=== PATIENT | female | born 1985 | race Caucasian/White ===

== ENCOUNTER 2016-10-27 22:57 | Emergency (ER) | payer BC ==
--- NOTE | 2016-10-27 23:52 | EDM.PDOC ---
ED HPI HEAD INJURY - General Chief Complaint: Head Injury Stated Complaint: FELL ON ICE AND HIT HEAD Time Seen by Provider: 10/27/16 23:34 Source of Information: Reports: Patient, Family (mother) History Limitations: Reports: No limitations - History of Present Illness INITIAL COMMENTS - FREE TEXT/NARRATIVE: Patient presents with headache and pressure across the left side of her head after falling on the ice at about 0900 this morning at work. She was taking out the trash and slipped, falling straight backward. She denies LOC, vomiting , balance trouble or blind spots but says the left eye seemed a little blurry for quite awhile. 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 After the nap her vision was back to normal but she feels like there is swelling or pressure around the left side of her head, ear and eye. Her mom works with her and saw her shortly after the fall and noticed she seemed a little unsteady with walking. - Related Data Allergies/ADRs: Allergies Allergy/AdvReac Type Severity Reaction Status Date / Time No Known Drug Allergies Allergy Cannot Verified 11/14/15 10:14 Remember Home Meds: Home Meds Cyclobenzaprine [Flexeril] 1 tab PO TID PRN 11/14/15 [History] Hydrocodone/Acetaminophen [Hydrocodon-Acetaminophn 10-325] 2 tab PO Q6H PRN [History] DULoxetine HCl [Duloxetine HCl] 30 mg PO DAILY 10/27/16 [History] busPIRone [Buspar] 10 mg PO TID PRN 10/27/16 [History] metFORMIN HCl [Metformin HCl] 500 mg PO BIDMEALS 10/27/16 [History] Past Medical History Gastrointestinal History: Reports: Other (see below) Other Gastrointestinal History: 20 pound cyst removed from stomach Genitourinary History: Reports: None 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 History: Reports: Polycystic Ovaries Musculoskeletal History: Reports: Other (see below) Other Musculoskeletal History: protruding disc in lower back Psychiatric History: Reports: Anxiety, Depression - Infectious Disease History Infectious Disease History: Reports: Chicken pox, Influenza - Past Surgical History HEENT Surgical History: Reports: Myringotomy w tube(s), Tonsillectomy GI Surgical History: Reports: None Female Surgical History: Reports: Salpingo-oophorectomy, Other (see below) Other Female Surgeries/Procedures: right ovarian cyst and fallopian tube removed, replaced fallopian tube replaced with plastic tube. Musculoskeletal Surgical History: Reports: None Social & Family History - Family History Family Medical History: Noncontributory - Tobacco Use Smoking Status *Q: Current Every Day Smoker Years of Tobacco use: 3 Packs/Tins Daily: 0.2 Used Tobacco, but Quit: No Month Tobacco Last Used: July 2014 Second Hand Smoke Exposure: Yes - Alcohol Use Days Per Week of Alcohol Use: 0 - Recreational Drug Use Recreational Drug Use: No ED ROS GENERAL - Review of Systems Review Of Systems: See Below Constitutional: Denies: fever, weakness HEENT: Denies: Ear discharge, Vision change Respiratory: Denies: shortness of breath Cardiovascular: Denies: Chest pain, Lightheadedness, Syncope GI/Abdominal: Denies: Vomiting : Reports: no symptoms Musculoskeletal: Reports: neck pain, muscle stiffness (back of neck). Denies: shoulder pain, arm pain, back pain, hand pain, leg pain, foot pain, joint pain Skin: Denies: cyanosis, jaundice, mottled, pallor, diaphoresis Neurological: Reports: headache. Denies: confusion, dizziness, numbness, seizure, syncope, tingling, trouble speaking, difficulty walking, weakness, change in speech Psychiatric: Denies: Agitation, Anxiety, Confusion ED EXAM, HEAD INJURY - Physical Exam Exam: See Below Exam Limited By: No limitations General Appearance: alert, WD/WN, no apparent distress Head: atraumatic, normocephalic, scalp tenderness (right occipital). No: scalp lacerations, scalp swelling, scalp abrasions, scalp ecchymosis, scalp hematoma, active bleeding, Gonzalez's Sign, facial abrasions, facial ecchymosis, raccoon eyes Nexus Criteria: painful distracting injuries. No: posterior, midline cervical tenderness, evidence of intoxication, altered level of consciousness, focal neurological deficit Eyes: bilateral eye: EOMI (with full visual vickers maintained), normal inspection, PERRL Ears: normal external exam, normal canal, hearing grossly normal, normal TMs Nose: normal inspection Throat/Mouth: Normal lips, Normal voice, No airway compromise Neck: normal alignment, limited range of motion (mildly limited by tight, painful muscles), paraspinous muscle tender. No: spinous processes tender, tender midline Respiratory: no respiratory distress, lungs clear, normal breath sounds Cardiovascular: regular rate, rhythm, no murmur Back Exam: normal inspection, full range of motion. No: CVA tenderness (L), CVA tenderness (R), decreased range of motion, paraspinal tenderness, vertebral tenderness Extremities: no evidence of injury, normal range of motion, non-tender Neurologic: photographs curator II-XII nml as tested, no motor/sensory deficits, alert, normal mood/affect, oriented x 3, other (Romberg test is negative.). No: abnormal cerebellar tests Skin: Normal color, Warm/dry - Priscilla Coma Score Best Eye Response ([place]): (4) open spontaneously Best Verbal Response (Priscilla): (5) oriented Best Motor Response ([place]): (6) obeys commands Course - Vital Signs Last Recorded V/S: Last Vital Signs Temp 97.7 F 10/27/16 23:28 Pulse 75 10/27/16 23:28 Resp 18 10/27/16 23:28 BP 163/98 H 10/27/16 23:28 Pulse Ox 97 10/27/16 23:28 - Orders/Labs/Meds Orders: Active Orders 24 hr Category Date Time Status C-Spine [Cervical Spine wo Cont] [CT] Stat Exams 10/27/16 23:31 Ordered Head wo Cont [CT] Stat Exams 10/27/16 23:30 Ordered - Re-Assessments/Exams Free Text/Narrative Re-Assessment/Exam: 10/28/16 00:18 CT of head and C-spine are normal per report. Snellen eye exam is normal. Discussed findings and expectations with patient. Gave Toradol for headache and patient feels like she would like to get home and sleep. Headache is starting to improve a little. Patient was discharged in stable condition. Departure - Departure Time of Disposition: 00:11 Disposition: Home, Self-Care 01 Condition: good Clinical Impression: Concussion Qualifiers: Encounter type: initial encounter Loss of consciousness presence/duration: without LOC Qualified Code(s): S06.0X0A - Concussion without loss of consciousness, initial encounter Whiplash injury to neck Qualifiers: Encounter type: initial encounter Qualified Code(s): S13.4XXA - Sprain of ligaments of cervical spine, initial encounter Instructions: Concussion, Adult, [id number] Forms: ED Department Discharge Additional Instructions: 1. Get plenty of sleep for next couple of days. 2. With a concussion, activities with increased risk for repeat injury to the head should be avoided. Strenuous mental stimulation should also be limited to short periods; these include long periods of studying, focusing on electronics, etc. 3. Follow up with your PCP if your headache persists or worsens. 4 Return to ER if significant worsening and PCP is not available. - My Orders Last 24 Hours: My Active Orders 10/27/16 23:30 Head wo Cont [CT] Stat 10/27/16 23:31 C-Spine [Cervical Spine wo Cont] [CT] Stat - Assessment/Plan Last 24 Hours: My Active Orders 10/27/16 23:30 Head wo Cont [CT] Stat 10/27/16 23:31 C-Spine [Cervical Spine wo Cont] [CT] Stat
[2016-10-27] MEDS ORDERED: Ketorolac 60 MG/2 ML SDV IM ONE (23:57)
[2016-10-28 00:15] VITALS: BP 141/78
== END 2016-10-28 00:30 | disposition home or self-care (01) ==
LOC: KA.ED 22:57
DX: S06.0X0A Concussion without loss of consciousness, initial encounter (principal); S13.4XXA Sprain of ligaments of cervical spine, initial encounter; F41.9 Anxiety disorder, unspecified; F32.9 Major depressive disorder, single episode, unspecified; Z79.899 Other long term (current) drug therapy; W00.0XXA Fall on same level due to ice and snow, initial encounter
CPT/HCPCS: 70450; 72125; 96372; 99284; J1885

== ENCOUNTER 2021-06-18 08:49 | Emergency (ER) | payer BC ==
--- NOTE | 2021-06-18 09:17 | EDM.PDOC ---
ED HPI GENERAL MEDICAL PROBLEM - General Chief Complaint: General Stated Complaint: LEFT SIDE ARM TINGLING Time Seen by Provider: 06/18/21 09:10 Source of Information: Reports: Patient History Limitations: Reports: No Limitations - History of Present Illness INITIAL COMMENTS - FREE TEXT/NARRATIVE: 35 YO OBESE HF PRESENTS TO ER COMPLAINING OF INTERMITTENT LEFT ARM TINGLING WHICH BEGAN YESTERDAY WHILE AT WORK. PT STATES EPISODE LASTED FOR LESS THAN 1 MINUTE. PT REPORTS TODAY WHILE AT WORK SHE HAD ANOTHER EPISODE. PT STATES AFTER THIS OCCURRED SHE DEVELOPED SOME TINGLING IN HER LIPS PROMPTING HER TO COME TO ER FOR FURTHER EVALUATION. PT WITH HISTORY OF ANXIETY BUT HASN'T HAD ANY "ATTACKS" IN A FEW YEARS. PT WITH PMH OF NIDDM, CERVICAL AND LUMBAR PAIN ISSUES WHICH SHE GETS EPIDURAL INJECTIONS AND OBESITY. PT DENIES CHEST PAIN, SHORTNESS OF BREATH, DIAPHORESIS, DIZZINESS OR NAUSEA/VOMITING. NO FACIAL DROOP, NO SLURRED SPEECH, NO ATAXIA OR MOTOR WEAKNESS. Onset Date: 06/17/21 Location: Reports: Neck, Upper Extremity, Left Quality: Reports: Other (TINGLING) Improves with: Reports: None Worsens with: Reports: None Associated Symptoms: Reports: No Other Symptoms. Denies: Chest Pain, Cough, Diaphoresis, Fever/Chills, Headaches, Loss of Appetite, Nausea/Vomiting, Shortness of Breath, Syncope, Weakness - Related Data Allergies Allergy/AdvReac Type Severity Reaction Status Date / Time gabapentin Allergy Hives Verified 06/18/21 10:33 metformin Allergy Nausea and Verified 06/18/21 10:33 Vomiting Home Meds: Home Meds Cyclobenzaprine [Flexeril] 1 tab PO TID PRN 11/14/15 [History] DULoxetine HCl [Duloxetine HCl] 30 mg PO BID 10/27/16 [History] busPIRone [Buspar] 10 mg PO TID PRN 10/27/16 [History] Losartan Potassium 50 mg PO DAILY 06/14/21 [History] oxyCODONE HCl/Acetaminophen [Oxycodone-Acetaminophen 5-325] 1 tab PO QID PRN 06/14/21 [History] Past Medical History Gastrointestinal History: Reports: Other (See Below) Other Gastrointestinal History: 20 pound cyst removed from stomach Genitourinary History: Reports: None 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: Polycystic 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 Musculoskeletal History: Reports: Other (See Below) Other Musculoskeletal History: protruding disc in lower back Psychiatric History: Reports: Anxiety, Depression Endocrine/Metabolic History: Reports: Diabetes, Type II, Obesity/BMI 30+ - Infectious Disease History Infectious Disease History: Reports: Chicken Pox, Influenza - Past Surgical History HEENT Surgical History: Reports: Myringotomy w Tube(s), Tonsillectomy Female Surgical History: Reports: Salpingo-Oophorectomy, Other (See Below) Social & Family History - Family History Family Medical History: No Pertinent Family History - Caffeine Use Caffeine Use: Reports: Soda ED ROS GENERAL - Review of Systems Review Of Systems: See Below Constitutional: Reports: No Symptoms HEENT: Reports: No Symptoms Respiratory: Reports: No Symptoms Cardiovascular: Reports: No Symptoms. Denies: Chest Pain, Blood Pressure P roblem, Lightheadedness Endocrine: Reports: No Symptoms GI/Abdominal: Reports: No Symptoms : Reports: No Symptoms Musculoskeletal: Reports: No Symptoms Skin: Reports: No Symptoms Neurological: Reports: Tingling. Denies: Confusion, Dizziness, Numbness, Syncope, Trouble Speaking, Difficulty Walking, Weakness, Change in Speech, Gait Disturbance Psychiatric: Reports: No Symptoms Hematologic/Lymphatic: Reports: No Symptoms Immunologic: Reports: No Symptoms ED EXAM, GENERAL - Physical Exam Exam: See Below Exam Limited By: No Limitations General Appearance: Alert, WD/WN, No Apparent Distress Ears: Normal External Exam, Normal Canal, Hearing Grossly Normal, Normal TMs Ear Exam: Bilateral Ear: Auricle Normal, Canal Normal, TM normal Nose: Normal Inspection, Normal Mucosa, No Blood Throat/Mouth: Normal Inspection, Normal Lips, Normal Teeth, Normal Gums, Normal Oropharynx, Normal Voice, No Airway Compromise Head: Atraumatic, Normocephalic Neck: Normal Inspection, Supple, Full Range of Motion, Tender Lateral Respiratory/Chest: No Respiratory Distress, Lungs Clear, Normal Breath Sounds, No Accessory Muscle Use, Chest Non-Tender Cardiovascular: Normal Peripheral Pulses, Regular Rate, Rhythm, No Edema, No Gallop, No JVD, No Murmur GI/Abdominal: Normal Bowel Sounds, Soft, Non-Tender, No Organomegaly, No Distention, No Abnormal Bruit, No Mass Back Exam: Normal Inspection, Full Range of Motion, NT Extremities: Normal Inspection, Normal Range of Motion, Non-Tender, Normal Capillary Refill, No Pedal Edema Neurological: Alert, Oriented, CN II-XII Intact, Normal Cognition, Normal Gait, No Motor/Sensory Deficits Psychiatric: Normal Affect, Normal Mood Skin Exam: Warm, Dry, Intact, Normal Color, No Rash Lymphatic: No Adenopathy #1 Interpretation EKG Date: 06/18/21 Time: 09:22 Rhythm: NSR Rate (Beats/Min): 84 [place]: Normal P-Wave: Present QRS: Normal ST-T: Normal QT: Normal Comparison: NA - No Prior EKG Course - Vital Signs Last Recorded V/S: Last Vital Signs Temp 97.3 F 06/18/21 09:27 Pulse 88 06/18/21 09:27 Resp 20 06/18/21 09:27 BP 128/85 06/18/21 09:27 Pulse Ox 96 06/18/21 09:27 - Orders/Labs/Meds Orders: Active Orders 24 hr Category Date Time Status Cardiac Monitoring [RC] . DIRECTED Care 06/18/21 09:15 Active Chest 2V [CR] Stat Exams 06/18/21 09:15 Ordered EKG 12 Lead [EK] Stat Ther 06/18/21 09:15 Ordered Labs: Laboratory Tests 06/18/21 06/18/21 Range/Units 09:20 09:20 WBC 10.58 H (5.00-10.00) 10^3/uL RBC 5.07 (3.80-5.50) 10^6/uL Hgb 13.2 D (12.0-16.0) g/dL Hct 41.2 (37.0-47.0) % MCV 81.3 L (82.0-92.0) fL MCH 26.0 L (27.0-31.0) pg MCHC 32.0 (32.0-36.0) g/dL RDW 13.1 (11.5-14.5) % Plt Count 397 D (150-400) 10^3/uL MPV 9.8 (7.4-10.4) fL Immature Gran % (Auto) 0.2 (0.0-5.0) % Neut % (Auto) 57.1 (50.0-70.0) % Lymph % (Auto) 34.2 (20.0-40.0) % [place] % (Auto) 5.2 (2.0-8.0) % Eos % (Auto) 2.7 (1.0-3.0) % Baso % (Auto) 0.6 (0.0-1.0) % Neut # (Auto) 6.04 (2.50-7.00) 10^3/uL Lymph # (Auto) 3.62 (1.00-4.00) 10^3/uL [place] # (Auto) 0.55 (0.10-0.80) 10^3/uL Eos # (Auto) 0.29 (0.10-0.30) 10^3/uL Baso # (Auto) 0.06 (0.00-0.10) 10^3/uL Immature Gran # (Auto) 0.02 (0.00-0.50) 10^3/uL Sodium 133 L (136-145) mmol/L Potassium 4.5 (3.5-5.1) mmol/L Chloride 96 L (98-107) mmol/L Carbon Dioxide 28.9 (21.0-32.0) mmol/L Anion Gap 12.6 (5-15) mmol/L BUN 11 (7-18) mg/dL Creatinine 0.59 (0.51-1.17) mg/dL Est Cr Clr Drug Dosing 122.21 mL/min Estimated GFR (MDRD) > 60 mL/min Glucose 339 H (70-140) mg/dL Calcium 8.8 (8.7-10.3) mg/dL Total Bilirubin 0.3 (0.2-1.0) mg/dL AST 16 (15-37) U/L ALT 39 (14-63) U/L Alkaline Phosphatase 90 (46-116) U/L Troponin I High Sens 5.600 (0-51.000) pg/mL Total Protein 7.6 (6.4-8.2) g/dL Albumin 3.45 (3.40-5.00) g/dL HCG, Qual Negative (NEGATIVE) Meds: Medications Discontinued Medications Generic Name Dose Route Start Last Admin Trade Name Freq PRN Reason Stop Dose Admin Lorazepam 1 mg 06/18/21 09:42 06/18/21 10:20 Lorazepam 2 Mg/Ml Sdv IM 06/18/21 09:43 1 mg ONETIME ONE Administration Departure - Departure Time of Disposition: 10:35 Disposition: Home, Self-Care 01 Condition: Good Clinical Impression: Hyperglycemia due to diabetes mellitus, Cervical radiculitis, Anxiety - Discharge Information Instructions: Radicular Pain Referrals: Susy Orosco MD [Primary Care Provider] - Forms: ED Department Discharge Additional Instructions: 1. DISCHARGE HOME 2. FOLLOW UP WITH PCP FOR HGBA1C CHECK AND MANAGEMENT OF HYPERGLYCEMIA 3. MASSAGE TO NECK/HEAT TO NECK/STRETCHING- CONSIDER PHYSICAL THERAPY IF NO IMPROVEMENT 4. MOTRIN 600MG EVERY 6 HOURS NEEDED 5. RETURN TO ER FOR WORSENING SYMPTOMS Sepsis Event Note (ED) - Focused Exam Vital Signs: Vital Signs Temp Pulse Resp BP Pulse Ox 06/18/21 09:27 97.3 F 88 20 128/85 96 - My Orders Last 24 Hours: My Active Orders 06/18/21 09:15 Cardiac Monitoring [RC] . DIRECTED Chest 2V [CR] Stat EKG 12 Lead [EK] Stat - Assessment/Plan Last 24 Hours: My Active Orders 06/18/21 09:15 Cardiac Monitoring [RC] . DIRECTED Chest 2V [CR] Stat EKG 12 Lead [EK] Stat Assessment:: 1. MILD CERVICAL RADICULOPATHY 2. HYPERGLYCEMIA 3. ANXIETY Plan: 1. DISCHARGE HOME 2. FOLLOW UP WITH PCP FOR HGBA1C CHECK AND MANAGEMENT OF HYPERGLYCEMIA 3. MASSAGE TO NECK/HEAT TO NECK/STRETCHING- CONSIDER PHYSICAL THERAPY IF NO IMPROVEMENT 4. MOTRIN 600MG EVERY 6 HOURS NEEDED 5. RETURN TO ER FOR WORSENING SYMPTOMS
[2021-06-18] MEDS ORDERED: LORazepam 2 MG/ML SDV IM ONE (09:42)
[2021-06-18 09:52] LABS: ANION GAP 12.6 mmol/L (5-15); CHLORIDE,CL 96 mmol/L (98-107); SODIUM,NA 133 mmol/L (136-145)
[2021-06-18 12:41] VITALS: BP 138/82; PULSE 82
== END 2021-06-18 11:15 | disposition home or self-care (01) ==
LOC: KA.ED 08:49
DX: M54.12 Radiculopathy, cervical region (principal); E11.65 Type 2 diabetes mellitus with hyperglycemia; F41.9 Anxiety disorder, unspecified; E66.9 Obesity, unspecified; Z68.41 Body mass index [BMI] 40.0-44.9, adult; Z88.8 Allergy status to other drugs, medicaments and biological substances; Z79.899 Other long term (current) drug therapy
CPT/HCPCS: 36415; 80053; 84484; 84703; 85025; 93005; 96372; 99284; J2060; 93010